=== PATIENT | male | born 1950 | race Caucasian/White ===

== ENCOUNTER 2017-08-06 11:47 | Inpatient (IN) | END 2017-08-30 14:17 | disposition home health service (06) | DRG 853 ==

== ENCOUNTER 2017-09-02 23:17 | Inpatient (IN) | END 2017-09-07 16:30 | disposition home or self-care (01) | DRG 872 ==

== ENCOUNTER 2018-03-25 18:11 | Inpatient (IN) | END 2018-03-29 10:45 | disposition other institution (70) | DRG 280 ==